=== PATIENT | female | born 2000 | race Caucasian/White ===

== ENCOUNTER 2018-02-21 00:18 | Emergency (ER) | payer OTHER, SELFPAY ==
[2018-02-21 00:19] VITALS: BP 130/68; PULSE 79; RESP 17; TEMP 37.1; O2SAT 96; BMI 26.2
--- NOTE | 2018-02-21 00:26 | DCINST.ED_ITS ---
ED Disposition - Plan for ED Patient: Disposition: Home or Assisted Living Chief Complaint: Asthma Instructions: ED Reactive Airway Disease Referrals: [facility] Doctor,Out of [Primary Care Provider] -
--- NOTE | 2018-02-21 00:26 | ED.DCSUM_ITS ---
- ER Visit Summary Date of Service: 02/21/18 Chief Complaint: Asthma History of Present Illness: The patient is a 17 F who presents with an asthma exacerbation. She states that she just left [place] was having some wheezing after that. She does have a history of asthma. She does not have an inhaler as it is at home with her parents. She denies any fevers. She has had a slight cough. Denies any other symptoms Physical Examination: Vital signs reviewed. HEENT exam unremarkable. Heart is regular rate and rhythm without murmurs. Lungs have slight expiratory wheezing throughout. Abdomen is soft and nontender. Extremities reveal no edema. Skin exam normal. Neurologic exam normal. Test Results: [] Emergency Department Course and Treatment: Patient will be given albuterol aerosol treatment here. Albuterol inhaler for home. I do not feel a chest x- ray is necessary as she has a history of asthma. She will use the inhaler at home and will follow up with her PCP Treatment Plan: [] Disposition: Discharge Impression: Asthma exacerbation This note was generated with [employer]addle[employer] dictation software. It may contain incorrect words, spelling, and punctuation that were not noted in review of the chart prior to signing ED Disposition - Plan for ED Patient: Chief Complaint: Asthma Referrals: [facility] Doctor,Out of [Primary Care Provider] -
--- NOTE | 2018-02-21 00:26 | ED.DEP ---
ED Disposition - Plan for ED Patient: Disposition: Home or Assisted Living Chief Complaint: Asthma Instructions: ED Reactive Airway Disease Referrals: [facility] Doctor,Out of [Primary Care Provider] -
[2018-02-21] MEDS: Albuterol 2.5 MG/3 ML VIAL.NEB. INHALATION (00:34)
[2018-02-21 00:35] VITALS: PULSE 82; RESP 18
[2018-02-21 01:02] VITALS: O2SAT 98
[2018-02-21 01:06] VITALS: PULSE 96; RESP 16; O2SAT 98
== END 2018-02-21 01:07 | disposition home or self-care (01) ==
LOC: ED 00:43
PROVIDERS: Emergency Provider Emergency Medicine
DX: J45.901 Unspecified asthma with (acute) exacerbation (principal); Z79.51 Long term (current) use of inhaled steroids
CPT/HCPCS: 94640; 99282